=== PATIENT | female | born 1995 | race American Indian/Alaskan Native ===

== ENCOUNTER 2020-01-26 12:35 | Outpatient (CLI) | payer OTHER | END 2020-01-26 15:34 | disposition home or self-care (01) | LOC: TRG 12:35 → LAB 12:35 → TRG 14:01 | PROVIDERS: ATTEND Obstetrics & Gynecology | DX: O26.893 Other specified pregnancy related conditions, third trimester (principal); Z3A.30 30 weeks gestation of pregnancy; Z67.21 Type B blood, Rh negative | CPT/HCPCS: 86850; 86900; 86901; 96372; J2790 ==